=== PATIENT | male | born 1990 | race African-American/Black ===

== ENCOUNTER 2021-08-05 00:22 | Emergency (ER) | payer OTHER ==
[~2021-08-05] VITALS: Ht 190.5 cm; Wt 184.9 kg
[2021-08-05 00:35] VITALS: BP 138/89
== END 2021-08-05 07:22 | disposition home or self-care (01) ==
LOC: ER 00:23
DX: Z02.89 Encounter for other administrative examinations (principal)
CPT/HCPCS: 99281